=== PATIENT | female | born 1960 | race Caucasian/White ===

== ENCOUNTER 2020-01-02 14:28 | Inpatient (IN) | payer OTHER ==
[~2020-01-02] VITALS: Ht 167.6 cm; Wt 61.7 kg
--- NOTE | 2020-01-02 18:35 | NUR ---
PT ADMITTED. ALERT X1, VERBAL BUT UNCLEAR SPEECH. WOUND VAC TO SACRAL WOUND. IV 22G R HAND, PICC L UPPER ARM. VS FOLLOW HR 81, RR 18, T 98.8, BP 165/76. ON TELE, SR. CHANGED LINEN AND GOWN. WILL ENDORSE TO NIGHT RN.
[2020-01-02] MEDS ORDERED: INSU100V7 SQ (18:44)
[2020-01-02] MEDS ORDERED: SENN-261 PO (18:44)
[2020-01-02] MEDS ORDERED: MINO2.5T PO (18:44)
[2020-01-02] MEDS ORDERED: AMLO10TA4 PO (18:44)
[2020-01-02] MEDS ORDERED: POLY17PO4 PO (18:44)
[2020-01-02] MEDS ORDERED: BISA10SU11 RC (18:44)
[2020-01-02] MEDS ORDERED: ASPI-1169 PO (18:44)
[2020-01-02] MEDS ORDERED: CARV25TA2 PO (18:44)
[2020-01-02] MEDS ORDERED: ESCI10TA PO (18:44)
[2020-01-02] MEDS ORDERED: INSU100V42 SQ ×2 (18:44)
[2020-01-02] MEDS ORDERED: ASCO-352 PO (18:44)
[2020-01-02] MEDS ORDERED: DOCU-141 PO (18:44)
[2020-01-02] MEDS ORDERED: MEGE400O4 PO (18:44)
[2020-01-02] MEDS ORDERED: SEVE800T8 PO (18:44)
[2020-01-02] MEDS ORDERED: CEFE1VIA3 IV (18:44)
[2020-01-02] MEDS ORDERED: LEVE500T9 PO (18:44)
[2020-01-02] MEDS ORDERED: MAGN400O6 PO (18:44)
[2020-01-02] MEDS ORDERED: PANT40TA2 PO (18:44)
[2020-01-02] MEDS ORDERED: ACET-868 PO (18:44)
[2020-01-02] MEDS ORDERED: FERR325T23 PO (18:44)
[2020-01-02] MEDS ORDERED: ATOR40TA PO (18:44)
[2020-01-02] MEDS ORDERED: CALC1TAB30 PO (18:44)
[2020-01-02] MEDS ORDERED: FURO-144 PO (18:44)
[2020-01-02] MEDS ORDERED: LOSA100T31 PO (18:44)
[2020-01-02 20:00] VITALS: BP 175/86
--- NOTE | 2020-01-02 20:00 | NUR ---
RN OPENING NOTE PT RECEIVED IN BED. A/O X2. ON RA UNLABORED BREATHING. PT HAS LEFT UPPER ARM PICC LINE PATENT, FLUSHES WELL , RIGHT HAND 20 G S/L AND LEFT CHEST PERMCATH. SAFETY MEASURES IN PLACE. BED AT LOWEST POSITION. LOCKED, SIDE RAILS UP X2, CALL LIGHT IN REACH.
[2020-01-02 21:00] VITALS: BP 166/75
--- NOTE | 2020-01-02 21:18 | NUR ---
JERMAINE NOTES PAGED FOR ADMISSION ORDERS C/O EXCHANGE Addendum: 01/02/20 at 2149 by BORIS PERALTA RN 2147 DR. MIKIE WHITMAN CALLED BACK. DR. ELIZABETH TINEO WILL PUT ADMISSION ORDERS. PRIMARY RN, ADALBERTO MADE AWARE
[2020-01-03] VITALS (7 sets, daily range): BP systolic 131–168; BP diastolic 43–84
[2020-01-03] MEDS ORDERED: PIPERACILLIN /TAZOBACTAM 4.5 G in IV D5W 50 ML IV SCH ×2
[2020-01-03] MEDS ORDERED: DEXTROSE 50%-WATER 50 ML DISP.SYRIN IV PRN
[2020-01-03] MEDS ORDERED: MAG HYDROX/AL HYDROX/SIMETH 30 ML UDC PO PRN
[2020-01-03] MEDS ORDERED: MAGNESIUM HYDROXIDE 30 ML UDC PO PRN
[2020-01-03] MEDS ORDERED: ACETAMINOPHEN 325 MG TABLET PO PRN ×2
[2020-01-03] MEDS ORDERED: ZOLPIDEM TARTRATE 5 MG TABLET PO PRN
[2020-01-03] MEDS ORDERED: ONDANSETRON HCL/PF 4 MG/2 ML VIAL IVP PRN
[2020-01-03] MEDS ORDERED: Z GUARD REMEDY 2 OZ OINT TP PRN
[2020-01-03] MEDS ORDERED: SENNOSIDES 8.6 MG TABLET PO PRN
[2020-01-03] MEDS ORDERED: VANCOMYCIN HCL 1.25 GM in IV D5W 260 ML IV ONE ×2
[2020-01-03] MEDS: IV D5/0.45 NACL 1,000 ML IV PRN ×2 (01:05→17:56)
[2020-01-03] MEDS ORDERED: PIPERACILLIN /TAZOBACTAM 2.25 G VIAL IV ONE (01:17)
[2020-01-03] MEDS: ZOSYN IVPB 4.5 G in IV D5W 50ml IV SCH ×3 (01:32→06:36)
[2020-01-03] MEDS ORDERED: VANCOMYCIN 500 MG VIAL ONE (01:40)
[2020-01-03] MEDS ORDERED: VANCOMYCIN 1 GM VIAL ONE (02:05)
--- NOTE | 2020-01-03 02:07 | NUR ---
RN CLOSING NOTE REPORT GIVEN TO DEBRA DEAN FOR DIMITRI. PT REMAINED STABEL DURING MY SHIFT
--- NOTE | 2020-01-03 06:46 | NUR ---
VANESSA/RN PATIENT IS AWAKE, COMFORTABLE, NO SIGNS OF DISTRESS NOTED, CALL LIGHT IN REACH. ALL NEEDS ATTENDED AT THIS TIME, WILL CONTINUE TO MONITOR. ZOSYN 4.5 G WAS NOT GIVEN PER BRYANNA, PHARMACIST. (PER BORIS, CHARGE RN0.
[2020-01-03] MEDS ORDERED: VANCOMYCIN 500 MG in IV D5W 100ml IV PRN (07:00)
[2020-01-03] MEDS ORDERED: VANCOMYCIN 500 MG in IV D5W 100ml IV SCH (07:00)
[2020-01-03] MEDS: PANTOPRAZOLE 40 MG TABLET.DR PO SCH (07:32)
[2020-01-03] MEDS: SEVELAMER CARBONATE 800 MG TABLET PO SCH ×3 (07:32→17:01)
[2020-01-03] MEDS: BLOOD SUGAR DIAGNOSTIC 1 EACH STRIP IN SCH ×4 (07:37→22:08)
[2020-01-03] MEDS: INSULIN REGULAR, HUMAN 100 UNIT/ML 3 ML VIAL SQ PRN ×4 (07:43→22:10)
--- NOTE | 2020-01-03 07:44 | NUR ---
LOOP MACHINE OPERATOR OPENING NOTES RECEIVED PT ON BED, A/OX2, CONFUSED. RESPIRATION EVEN AND NON LABORED WITH NO ACUTE RESPIRATORY DISTRESS, TOLERATED ROOM AIR. ABD SOFT AND NON DISTENDED WITH ACTIVE BOWEL SOUNDS,INCONTINENT. NO S/SX OF PAIN AND DISCOMFORT. SKIN WARM TO TOUCH AN DRY, BLE OFFLOAD. IV SITE AT [facility] TRIPLE LUMEN PICC LINE, R HAND #18, NO S/S OF INFILTRATION, PATENT IN FLUSHING RUNNING D51/2NS AT 75 ML/HR. BED IN LOW LOCKED POSITION, SRX2 UP FOR SAFETY, BED ALARM ON, SEIZURE PRECAUTION IMPLEMENTED. TELE MONITOR SHOWS SINUS RHYTHM 85. PT TRANSFER FROM [facility] DIRECT ADMIT. WILL CONTINUE TO MONITOR CARE
[2020-01-03] MEDS: PIPERACILLIN /TAZOBACTAM 2.25 G in IV D5W 50 ML IV SCH ×4 (08:00→23:45)
[2020-01-03 08:26] LABS: BASOPHILS % (AUTO) 0.5 % (0.0-2.0); EOSINOPHILS % (AUTO) 2.7 % (0.0-6.0); HEMATOCRIT 28 % (33-45); HEMOGLOBIN 9.3 g/dL (11.5-14.8); LYMPHOCYTES # (AUTO) 0.6 /CMM (0.8-4.8); LYMPHOCYTES % (AUTO) 11.5 % (20.0-44.0); MEAN CORPUSCULAR HGB CONC 33 g/dl (31.0-36.0); MEAN CORPUSCULAR VOLUME 99 fL (82-100); MONOCYTES # (AUTO) 0.3 /CMM (0.1-1.30); NEUTROPHILS # (AUTO) 4.4 /CMM (1.8-8.9); NEUTROPHILS % (AUTO) 80.3 % (43.0-81.0); PLATELET COUNT (AUTO) 190 /CMM (150-450); RED BLOOD CELL COUNT(AUTO) 2.87 MIL/uL (4.0-5.2); WHITE BLOOD COUNT (AUTO) 5.4 K/uL (4.3-11.0)
[2020-01-03 08:51] LABS: CALCIUM, SERUM 8.2 mg/dL (8.5-10.1); CREATININE 2.5 mg/dL (0.6-1.3); PHOSPHORUS 2.1 mg/dL (2.5-4.9); POTASSIUM 3.5 mmol/L (3.5-5.1)
[2020-01-03] MEDS: ASPIRIN 81 MG TAB.CHEW PO SCH (09:08)
[2020-01-03] MEDS: LEVETIRACETAM (250 MG) 250 MG TABLET PO SCH ×2 (09:08→22:08)
[2020-01-03] MEDS: CALCIUM CARB 600MG /VIT D 1 EACH TABLET PO SCH (09:08)
[2020-01-03 09:09] LABS: THYROID STIMULATING HORMONE 6.04 uIU/mL (0.358-3.74)
[2020-01-03] MEDS: ENOXAPARIN SODIUM 40 MG/0.4 ML DISP.SYRIN SQ SCH (09:09)
[2020-01-03] MEDS ORDERED: K PHOS NEUTRAL 250 MG TABLET PO ONE (11:30)
--- NOTE | 2020-01-03 18:47 | NUR ---
TODDLER GUIDE CLOSING NOTES PT AAOX1-2, TURKISH, EPISODES OF CONFUSION. ASSESSED NO PRESENCE OF ACUTE RESPIRATORY DISTRESS, OLIVER RA. ABD SOFT AND NON DISTENDED, BM X2. FLACC-0. WAITING FOR WOUND CONSULT TO SACRUM, OFFLOAD, REPOSITION Q2H. IV SITE AT LEFT UPPER ARM PICC LINE PATENT IN FLUSHING RUNNING D51/2 NS AT 75 ML/HR. BED IN LOW LOCKED POSITION, SRX2 UP FOR SAFETY, BED ALARM ON. TELE MONITOR SHOWS SINUS RHYTHM. ENDORSED CARE TO NEXT SHIFT.
--- NOTE | 2020-01-03 19:50 | NUR ---
CASUALTY CLAIMS SUPERVISOR OPENING NOTES RECEIVED PATIENT FROM MORNING SHIFT, ALERT AND ORIENTED X 1-2 WITH EPISODES OF CONFUSION. VERBALLY RESPONSIVE AND ABLE TO FOLLOW DIRECTIONS. BREATHING REGULAR AND UNLABORED ON ROOM AIR. LEFT CHEST PERMACATH INTACT WITH NO ACTIVE BLEEDING OBSERVED. LEFT UPPER ARM PICC LINE PATENT AND INFUSING WELL WITH NO BLEEDING OR S/S INFILTRATION NOTED. ON CARDIAC MONITORING WITH NSR AT 78bpm. NO S/S OF PAIN/DISCOMFORT SEEN AT THIS TIME. BED LOW AND LOCKED ON SEMI FOWLERS POSITION. CALL LIGHT IN REACH. WILL CONTINUE TO MONITOR.
[2020-01-03] MEDS: ATORVASTATIN 40 MG TABLET PO SCH (22:08)
[2020-01-03] MEDS: POLYETHYLENE GLYCOL 3350 17 GM POWD.PACK PO SCH (22:08)
--- NOTE | 2020-01-03 22:10 | NUR ---
PHOTOCOPYING EQUIPMENT REPAIRER NOTES BS 199mg/dl, 3UNITS REGULAR INSULIN GIVEN SQ. ASSISTED ON EATING SNACKS. WILL CONTINUE TO MONITOR.
[2020-01-04] VITALS: BP 138/60
[2020-01-04 04:00] VITALS: BP 153/69
[2020-01-04] MEDS: PIPERACILLIN /TAZOBACTAM 2.25 G in IV D5W 50 ML IV SCH ×4 (05:28→23:56)
[2020-01-04] MEDS: IV D5/0.45 NACL 1,000 ML IV PRN (05:56)
[2020-01-04] MEDS: BLOOD SUGAR DIAGNOSTIC 1 EACH STRIP IN SCH ×4 (06:31→22:05)
[2020-01-04] MEDS: PANTOPRAZOLE 40 MG TABLET.DR PO SCH (06:32)
[2020-01-04] MEDS: INSULIN REGULAR, HUMAN 100 UNIT/ML 3 ML VIAL SQ PRN ×4 (06:32→22:34)
--- NOTE | 2020-01-04 06:40 | NUR ---
DIESEL ENGINE II PIPE FITTER CLOSING NOTES PATIENT IN BED, ALERT AND ORIENTED X 1-2 CONFUSED AT TIMES. AFEBRILE WITH NO S/S OF DISTRESS OBSERVED. LEFT CHEST PERMACATH INTACT, DRESSING CLEAN AND DRY. LEFT UPPER ARM PICC LINE PATENT AND INFUSING WELL. MAINTAINED ON CARDIAC MONITORING WITH NSR. NO S/S OF PAIN/DISCOMFORT SEEN AT THIS TIME. WOUND CARE PROVIDED. BED LOW AND LOCKED ON SEMI FOWLERS POSITION. CALL LIGHT IN REACH. WILL ENDORSE TO MORNING SHIFT FOR DIMITRI.
--- NOTE | 2020-01-04 07:30 | NUR ---
RN OPENING NOTES RECEIVED PATIENT IN BED, AWAKE ALERT AND ORIENTED X 1 CONFUSED BUT ABLE TO MAKE NEEDS KNOWN. [place] SPEAKING ONLY AFEBRILE WITH NO CARDIAC OR RESPIRATORY DISTRESS NOTED. NO SOB NOTED. SATURATING WELL ON ROOM AIR. LEFT CHEST PERMACATH NOTED DRESSING INTACT AND DRY. NO S/S OF BLEEDING NOTED. IV ACCESS NOTED ON LEFT UPPER ARM PICC LINE INTACT AND PATENT AND INFUSING WELL WITH D51/2 ND RUNNING AT 75ML/HR.. MAINTAINED ON CARDIAC MONITORING WITH NSR. SAFETY PRECAUTIONS IN PLACE/ BED LOW AND LOCKED ON SEMI FOWLERS POSITION. CALL LIGHT IN REACH. WILL CONT TO MONITOR.
[2020-01-04 07:41] LABS: BASOPHILS % (AUTO) 0.5 % (0.0-2.0); EOSINOPHILS % (AUTO) 4.5 % (0.0-6.0); HEMATOCRIT 25 % (33-45); HEMOGLOBIN 8.4 g/dL (11.5-14.8); MEAN CORPUSCULAR HGB CONC 34 g/dl (31.0-36.0); MEAN CORPUSCULAR VOLUME 100 fL (82-100); MONOCYTES # (AUTO) 0.3 /CMM (0.1-1.30); MONOCYTES % (AUTO) 6.4 % (2.0-12.0); NEUTROPHILS # (AUTO) 3.3 /CMM (1.8-8.9); NEUTROPHILS % (AUTO) 67.6 % (43.0-81.0); PLATELET COUNT (AUTO) 172 /CMM (150-450); RED BLOOD CELL COUNT(AUTO) 2.54 MIL/uL (4.0-5.2); WHITE BLOOD COUNT (AUTO) 4.9 K/uL (4.3-11.0)
[2020-01-04 07:58] LABS: CALCIUM, SERUM 7.4 mg/dL (8.5-10.1); CREATININE 2.9 mg/dL (0.6-1.3); POTASSIUM 3.3 mmol/L (3.5-5.1)
[2020-01-04 08:00] VITALS: BP 118/86
[2020-01-04] MEDS: LEVETIRACETAM (250 MG) 250 MG TABLET PO SCH ×2 (08:19→20:43)
[2020-01-04] MEDS: ASPIRIN 81 MG TAB.CHEW PO SCH (08:19)
[2020-01-04] MEDS: HYDROCODONE/APAP 5/325MG TABLET PO PRN ×2 (08:19→16:05)
[2020-01-04] MEDS: SEVELAMER CARBONATE 800 MG TABLET PO SCH ×3 (08:19→16:58)
[2020-01-04] MEDS: CALCIUM CARB 600MG /VIT D 1 EACH TABLET PO SCH (08:20)
[2020-01-04] MEDS: ENOXAPARIN SODIUM 40 MG/0.4 ML DISP.SYRIN SQ SCH (08:22)
[2020-01-04] MEDS ORDERED: POTASSIUM CHLORIDE 20 MEQ TAB.PRT.SR PO SCH (11:30)
[2020-01-04] MEDS: POTASSIUM CHLORIDE 20 MEQ POWDER PACKET NG SCH ×2 (11:45→11:54)
[2020-01-04 12:00] VITALS: BP 118/86
[2020-01-04] MEDS ORDERED: POTASSIUM CHLORIDE 20 MEQ TAB.PRT.SR PO ONE (12:00)
[2020-01-04] MEDS ORDERED: K PHOS NEUTRAL 250 MG TABLET PO ONE (14:00)
[2020-01-04 16:00] VITALS: BP 118/86
--- NOTE | 2020-01-04 16:00 | NUR ---
WOUND CARE WOUND CARE DONE. PT HAS A ST 4 ON SACRAL AREA. PRE-MEDICATED PT PRIOR TO TX. TOLERATED PROCEDURE WELL.
[2020-01-04] MEDS ORDERED: SILVER NITRATE APPLICATOR 1 EA BOX TP SCH (16:30)
[2020-01-04] MEDS ORDERED: LIDOCAINE 1%-EPI 1:100,000 20 ML VIAL TP ONE (16:30)
--- NOTE | 2020-01-04 17:00 | NUR ---
WOUND CONSENT CONSENT FOR SACRUM WOUND DEBRIDEMENT OBTAINED FROM PTS SON REY DAVIDSON. SON PROVIDED CONSENT, VERIFIED WITH DIANELYS DEAN.
[2020-01-04] MEDS: DAKINS QUARTER STRENGTH (0.125%) 480 ML BOTTLE TOP SCH (17:13)
--- NOTE | 2020-01-04 19:20 | NUR ---
RN OPENING NOTE RECEIVED PATIENT IN BED RESTING ALERT ORIENTED X1 VERBALLY RESPONSIVE,FIJIAN SPEAKER, NO SOB NOT ACUTE DISTRESS NOTED ON TELE MONITORING IV SITE IS ON LEFT UPPER ARM PICC LINE INTACT PATENT AND LEFT UPPER CHEST PERM CATH FOR DIALYSIS INTACT, IV HYDRATION D51/2NS RUNNING 75CC/HR,PATIENT IS INCONTINENT TO BOWEL/BLADDER IMPLEMENT SAFETY MEASURE,BED LOCKED IN LOW POSITION,CALL LIGHT WITHIN REACH
--- NOTE | 2020-01-04 19:30 | NUR ---
RN OPENING NOTES RECEIVED PATIENT IN BED, AWAKE ALERT AND ORIENTED X 1 CONFUSED BUT ABLE TO MAKE NEEDS KNOWN. URDU SPEAKING ONLY AFEBRILE WITH NO CARDIAC OR RESPIRATORY DISTRESS NOTED. NO SOB NOTED. SATURATING WELL ON ROOM AIR. LEFT CHEST PERMACATH NOTED DRESSING INTACT AND DRY. NO S/S OF BLEEDING NOTED. IV ACCESS NOTED ON LEFT UPPER ARM PICC LINE INTACT AND PATENT AND INFUSING WELL WITH D51/2 ND RUNNING AT 75ML/HR.. PT WILL BE DIALYZED TODAY PER [facility]ADE ACCORDING TO THE SCHEDULE. ALL NEEDS MET AND ATTENDED. ALL DUE MEDS ADMINISTERED, NO ASE NOTED. MAINTAINED ON CARDIAC MONITORING WITH NSR. SAFETY PRECAUTIONS IN PLACE/ BED LOW AND LOCKED ON SEMI FOWLERS POSITION. CALL LIGHT IN REACH. WILL CONT TO MONITOR. Addendum: 01/04/20 at 1958 by CARMEN BENNETT RN DISREGARD TITLE. IT IS SUPPOSED TO BE "RN CLOSING NOTES"
[2020-01-04 20:00] VITALS: BP 207/97
--- NOTE | 2020-01-04 20:30 | NUR ---
RN NOTE BLOOD PRESSURE IS 207/[address] DELUNA AND RECEIVED ORDER FOR COREG 25 MG PO TWICE A DAY AND LOSARTAN 100 MG PO DAILY,NOTED AND CARRIED OUT.
[2020-01-04] MEDS: CARVEDILOL 12.5 MG TABLET PO SCH (20:44)
[2020-01-04] MEDS: LOSARTAN POTASSIUM 50 MG TABLET PO SCH (20:46)
[2020-01-04] MEDS: POLYETHYLENE GLYCOL 3350 17 GM POWD.PACK PO SCH (21:48)
[2020-01-04] MEDS: ATORVASTATIN 40 MG TABLET PO SCH (21:48)
[2020-01-05] VITALS: BP 196/82
[2020-01-05] MEDS ORDERED: hydrALAZINE HCL IV 20 MG VIAL IV PRN
--- NOTE | 2020-01-05 | NUR ---
RN NOTE BLOOD PRESSURE IS 186/[address] DELUNA AND DORI ORDER METOPROLOL 5MG/5ML IV EVERY 6 HOURS PRN WHEN SBP>180 NOTED AND CARRIED OUT.
[2020-01-05] MEDS ORDERED: METOPROLOL TARTRATE INJ 5 MG/5 ML AMPUL IVP PRN (00:30)
--- NOTE | 2020-01-05 03:00 | NUR ---
RN NOTE BLOOD PRESSURE CHECKED IS 174/87 CONTINUE TO MONITOR.
[2020-01-05 04:00] VITALS: BP 183/89
[2020-01-05] MEDS: PIPERACILLIN /TAZOBACTAM 2.25 G in IV D5W 50 ML IV SCH ×4 (05:30→23:54)
[2020-01-05 06:53] LABS: BASOPHILS % (AUTO) 0.6 % (0.0-2.0); HEMATOCRIT 26 % (33-45); HEMOGLOBIN 8.5 g/dL (11.5-14.8); LYMPHOCYTES # (AUTO) 1.1 /CMM (0.8-4.8); LYMPHOCYTES % (AUTO) 24.2 % (20.0-44.0); MEAN CORPUSCULAR HGB CONC 33 g/dl (31.0-36.0); MEAN CORPUSCULAR VOLUME 99 fL (82-100); MONOCYTES # (AUTO) 0.3 /CMM (0.1-1.30); MONOCYTES % (AUTO) 7.4 % (2.0-12.0); NEUTROPHILS # (AUTO) 2.7 /CMM (1.8-8.9); NEUTROPHILS % (AUTO) 62.8 % (43.0-81.0); PLATELET COUNT (AUTO) 169 /CMM (150-450); RED BLOOD CELL COUNT(AUTO) 2.58 MIL/uL (4.0-5.2); WHITE BLOOD COUNT (AUTO) 4.4 K/uL (4.3-11.0)
[2020-01-05 07:33] LABS: CALCIUM, SERUM 7.5 mg/dL (8.5-10.1); CREATININE 3.1 mg/dL (0.6-1.3); PHOSPHORUS 2.7 mg/dL (2.5-4.9)
--- NOTE | 2020-01-05 07:35 | NUR ---
RN CLOSING NOTE PATIENT REMAINS ON ALERT ORIENTED X1 VERBALLY RESPONSIVE SWEDISH SPEAKER,ON ROOM AIR O2:100% NO SOB NOT ACUTE DISTRESS IV SITE IS LEFT UPPER ARM PICC LINE INTACT PATENT IV HYDRATION D5 1/2NS 75CC/HR RUNNING,ALL DUE MEDS GIVEN MD ORDERED,KEPT CLEAN AND DRY ALL THE TIME,ALL NEEDS MET,ENDORSE NEXT COMING SHIFT FOR CONTINUATION OF CARE.
[2020-01-05 08:00] VITALS: BP 181/74
[2020-01-05] MEDS: SEVELAMER CARBONATE 800 MG TABLET PO SCH ×3 (08:00→18:19)
[2020-01-05] MEDS: ENOXAPARIN SODIUM 40 MG/0.4 ML DISP.SYRIN SQ SCH (09:00)
[2020-01-05] MEDS: LOSARTAN POTASSIUM 50 MG TABLET PO SCH (09:00)
[2020-01-05] MEDS: DAKINS QUARTER STRENGTH (0.125%) 480 ML BOTTLE TOP SCH (09:00)
[2020-01-05] MEDS: LEVETIRACETAM (250 MG) 250 MG TABLET PO SCH ×2 (10:51→21:56)
[2020-01-05] MEDS: ASPIRIN 81 MG TAB.CHEW PO SCH (10:51)
[2020-01-05] MEDS: CALCIUM CARB 600MG /VIT D 1 EACH TABLET PO SCH (10:52)
[2020-01-05] MEDS: PANTOPRAZOLE 40 MG TABLET.DR PO SCH (10:52)
[2020-01-05] MEDS: CARVEDILOL 12.5 MG TABLET PO SCH ×2 (10:52→17:00)
[2020-01-05] MEDS: BLOOD SUGAR DIAGNOSTIC 1 EACH STRIP IN SCH ×4 (12:00→21:56)
[2020-01-05] MEDS: INSULIN REGULAR, HUMAN 100 UNIT/ML 3 ML VIAL SQ PRN ×3 (12:04→22:35)
[2020-01-05 16:00] VITALS: BP 107/58
--- NOTE | 2020-01-05 18:55 | NUR ---
PATIENT IS ALERT AND ORIENTED X1 TO SELF. PATIENT DOES NOT DISPLAY ANY SIGNS AND SYMPTOMS OF PAIN, DISTRESS, OR SHORTNESS OF BREATH. ALL CARE NEEDS MET. WOUND CARE COMPLETE. BED IN LOW POSITION. CALL LIGHT IN REACH. HOMEOSTASIS MAINTAINED AT PATIENTS BASELINE. TWO SIDE RAILS UP. WILL GIVE REPORT TO NIGHT NURSE.
--- NOTE | 2020-01-05 19:15 | NUR ---
RN OPENING NOTES Received pt on bed asleep. On RA, no s/sx of discomfort noted. MS status. Kept on bed clean, dry and comfortable. On fall and aspiration precautions. Will continue to monitor accordingly.
[2020-01-05 20:00] VITALS: BP 171/74
[2020-01-05] MEDS: ATORVASTATIN 40 MG TABLET PO SCH (21:56)
[2020-01-05] MEDS: POLYETHYLENE GLYCOL 3350 17 GM POWD.PACK PO SCH (21:56)
[2020-01-06] MEDS: PIPERACILLIN /TAZOBACTAM 2.25 G in IV D5W 50 ML IV SCH ×3 (05:17→17:25)
[2020-01-06 06:49] LABS: BASOPHILS % (AUTO) 0.6 % (0.0-2.0); EOSINOPHILS % (AUTO) 3.6 % (0.0-6.0); HEMATOCRIT 26 % (33-45); LYMPHOCYTES # (AUTO) 1.2 /CMM (0.8-4.8); LYMPHOCYTES % (AUTO) 23.1 % (20.0-44.0); MEAN CORPUSCULAR HGB CONC 34 g/dl (31.0-36.0); MEAN CORPUSCULAR VOLUME 100 fL (82-100); MONOCYTES # (AUTO) 0.4 /CMM (0.1-1.30); MONOCYTES % (AUTO) 6.9 % (2.0-12.0); NEUTROPHILS # (AUTO) 3.5 /CMM (1.8-8.9); NEUTROPHILS % (AUTO) 65.8 % (43.0-81.0); PLATELET COUNT (AUTO) 170 /CMM (150-450); RED BLOOD CELL COUNT(AUTO) 2.63 MIL/uL (4.0-5.2); WHITE BLOOD COUNT (AUTO) 5.3 K/uL (4.3-11.0)
--- NOTE | 2020-01-06 06:59 | NUR ---
RN CLOSING NOTES Pt asleep on bed. No s/sx of discomfort noted. All nursing needs attended. Due meds given as ordered. Kept on bed clean, dry and comfortable. On fall and aspiration precautions. Endorsed.
[2020-01-06 07:40] LABS: CALCIUM, SERUM 7.5 mg/dL (8.5-10.1); CREATININE 2.7 mg/dL (0.6-1.3); MAGNESIUM 2.4 mg/dL (1.8-2.4); PHOSPHORUS 2.8 mg/dL (2.5-4.9); POTASSIUM 3.8 mmol/L (3.5-5.1)
[2020-01-06] MEDS: BLOOD SUGAR DIAGNOSTIC 1 EACH STRIP IN SCH ×3 (07:54→17:22)
--- NOTE | 2020-01-06 08:00 | NUR ---
MS RN OPENING NOTES Received Patient awake and resting in bed. A/O x 1, English speaking. VS stable with no acute distress. Breathing even and unlabored on room air with no respiratory distress. Denies pain. No signs and symptoms of pain. ANTONIO PICC line intact, patent and flushing well. LUCW permacath in place. Safety precautions in place. Bed locked and set to lowest position with side rails x 2 up. All needs rendered at this time. Call light within reach. Will continue to monitor.
[2020-01-06] MEDS: ASPIRIN 81 MG TAB.CHEW PO SCH (08:19)
[2020-01-06] MEDS: CALCIUM CARB 600MG /VIT D 1 EACH TABLET PO SCH (08:19)
[2020-01-06] MEDS: SEVELAMER CARBONATE 800 MG TABLET PO SCH ×3 (08:19→17:25)
[2020-01-06] MEDS: PANTOPRAZOLE 40 MG TABLET.DR PO SCH (08:19)
[2020-01-06] MEDS: LEVETIRACETAM (250 MG) 250 MG TABLET PO SCH (08:20)
[2020-01-06] MEDS: LOSARTAN POTASSIUM 50 MG TABLET PO SCH (08:20)
[2020-01-06] MEDS: CARVEDILOL 12.5 MG TABLET PO SCH ×2 (08:20→17:24)
[2020-01-06] MEDS: ENOXAPARIN SODIUM 40 MG/0.4 ML DISP.SYRIN SQ SCH (08:22)
[2020-01-06] MEDS: DAKINS QUARTER STRENGTH (0.125%) 480 ML BOTTLE TOP SCH (08:32)
[2020-01-06] MEDS: INSULIN REGULAR, HUMAN 100 UNIT/ML 3 ML VIAL SQ PRN ×2 (12:01→17:27)
[2020-01-06 17:24] VITALS: BP 150/76
--- NOTE | 2020-01-06 19:54 | NUR ---
MS RN CLOSING NOTES Patient resting in bed. A/O x 1, Tristanian speaking. VS stable with no acute distress. Breathing even and unlabored on room air with no respiratory distress. Denies pain. No signs and symptoms of pain. ANTONIO PICC line intact, patent and flushing well. LUCW permacath in place. Safety precautions in place. Bed locked and set to lowest position with side rails x 2 up. All needs rendered at this time. Call light within reach. Will endorse plan of care to oncoming shift.
--- NOTE | 2020-01-06 20:13 | NUR ---
MS BLISTER PACKAGING MACHINE OPERATOR NOTES Patient discharge for [facility] at this time. Patient in stable condition. VS stable with no acute distress. Breathing even and unlabored on room air with no respiratory distress. Denies pain. No signs and symptoms of pain. ANTONIO PICC Line intact, patent and flushing well. LUCW Permacath in place. Skin assessment photos taken and placed in chart. Medication reconciliation and discharge orders reviewed and explained to Patient. Patient unable to comprehend. All belongings with Patient. Patient will follow up with PCP at SNF. Patient picked up by [facility]. Report given to Bekah DEAN.
== END 2020-01-06 20:13 | DRG 364 ==
LOC: TELE1 18:19 → MEDSG1 01-05 09:20
PROVIDERS: ADMIT Nurse Practitioner Acute Care; ATTEND Nurse Practitioner Acute Care
PROC: 5A1D70Z Performance of Urinary Filtration, Intermittent, Less than 6 Hours Per Day (ICD-10-PCS; principal; 2020-01-05)
PROC: 0KBN0ZZ Excision of Right Hip Muscle, Open Approach (ICD-10-PCS; principal; 2020-01-05)
PROC: 0KBP0ZZ Excision of Left Hip Muscle, Open Approach (ICD-10-PCS; principal; 2020-01-05)
DX: E11.649 Type 2 diabetes mellitus with hypoglycemia without coma (principal); E11.22 Type 2 diabetes mellitus with diabetic chronic kidney disease; D63.1 Anemia in chronic kidney disease; F32.9 Major depressive disorder, single episode, unspecified; E78.5 Hyperlipidemia, unspecified; G40.909 Epilepsy, unspecified, not intractable, without status epilepticus; I12.0 Hypertensive chronic kidney disease with stage 5 chronic kidney disease or end stage renal disease; N18.6 End stage renal disease; G93.41 Metabolic encephalopathy; Z99.2 Dependence on renal dialysis; L89.154 Pressure ulcer of sacral region, stage 4; I69.30 Unspecified sequelae of cerebral infarction; K21.9 Gastro-esophageal reflux disease without esophagitis; E11.65 Type 2 diabetes mellitus with hyperglycemia; L90.5 Scar conditions and fibrosis of skin; Z86.14 Personal history of Methicillin resistant Staphylococcus aureus infection; J15.9 Unspecified bacterial pneumonia; J15.6 Pneumonia due to other Gram-negative bacteria
CPT/HCPCS: 36415; 71045-TC; 73200-TC; 80048-TC; 80061-TC; 80202-TC; 82962-TC; 83735-TC; 84100-TC; 84443-TC; 85025-TC; 87040-TC; 87081-TC; 90935-TC; A6253; A6403; G0378; J1650; J1815; J2543; J3370; J3490; J7060